=== PATIENT | male | born 1955 | race Caucasian/White ===

== ENCOUNTER 2020-12-22 07:52 | Inpatient (IN) ==
[2020-12-22] MEDS ORDERED: ONDANSETRON 4 MG/2 ML VIAL IV PRN (10:19)
[2020-12-22] MEDS ORDERED: PROMETHAZINE 25 MG/ML VIAL IV PRN (10:56)
--- NOTE | 2020-12-22 11:27 | General Surg History&Physical ---
HPI History of Present Illness Patient information: Note initiated : 12/22/20 at 11:07 am Service Date, if different from initiated Date: [] Patient: Osmar Gunn 65 y/o M admitted on 12/22/20 for RUQ pain. Chief Complaint: [] Chief complaint: Right upper quadrant abdominal pain History of present illness: Mr. Gunn is a 65 year old M transferred from [facility] for evaluation of suspected gallbladder disease. The patient had onset of severe right upper quadrant pain radiating through to his back about 2 PM yesterday. The pain increased throughout the day and by 9 PM last evening was very severe. He was seen in the hospital in [facility]. He was afebrile with a normal white count but had tender abdomen especially in the right upper quadrant and epigastrium. The gallbladder wall on CT was thickened. Ducts were normal. No stones were seen. He remains symptomatic and is transferred here for evaluation and treatment. Constitutional Constitutional: Present anorexia and weight loss (Intentional weight loss over the past year); Absent night sweats Cardiovascular Cardiovascular: Absent chest pain with activity, claudication and dyspnea on exertion Respiratory Respiratory: Absent cough, dyspnea on exertion and wheezing Gastrointestinal Gastrointestinal: Present abdominal pain, cramping, dyspepsia, nausea and vomiting Genitourinary Genitourinary: change in urinary stream, difficulty urinating, nocturia, urinary frequency, urinary hesitancy and urinary incontinence Musculoskeletal Musculoskeletal: Present back pain; Absent abnormal gait, arthralgias and neck pain Integumentary Integumentary: Absent changing lesions, pruritus and skin ulcer Neurological Neurological: Absent abnormal gait, convulsions, focal weakness, headache(s) and vertigo Psychiatric Psychiatric: Absent behavioral changes and depression Endocrine Endocrine: Absent change in body appearance, excessive sweating and palpitations Hematologic/Lymphatic Hematologic/Lymphatic: Absent easy bleeding, easy bruising and lymphadenopathy Allergic/Immunologic Allergic/Immunologic: Absent tongue swelling and throat swelling PFSH PFSH All Active Problems (Updated 12/22/20 @ 11:26 by Arnulfo Fabian MD) History of coronary artery disease (Acute) Adynamic ileus (Acute) Acute cholecystitis (Acute) Low back pain (Acute) Medical History (Updated 12/22/20 @ 11:26 by Arnulfo Fabian MD) Coronary artery disease Degenerative joint disease Degenerative lumbar disc History of prostate cancer Low back pain Surgical History (Updated 12/22/20 @ 11:19 by Arnulfo Fabian MD) H/O inguinal hernia repair H/O radical prostatectomy H/O umbilical hernia repair History of arthroplasty of right shoulder Family History (Updated 12/22/20 @ 11:22 by Arnulfo Fabian MD) Father Diabetes mellitus Lung cancer Coronary artery disease Mother Dementia Hypertension Social History (Updated 12/22/20 @ 11:23 by Arnulfo Fabian MD) household members: family marital status: occupational status: retired occupation: Educator hx recent travel: No smoking status: Never smoker alcohol intake frequency: 0-2 drinks per day substance use type: does not use MEDS/ALLERGIES Home Medications and Allergies Home Medications Medication Instructions Recorded Confirmed Type aspirin 81 mg PO DAILY 12/22/20 12/22/20 History atorvastatin 40 mg PO QHS 12/22/20 12/22/20 History losartan 50 mg PO QDAY 12/22/20 12/22/20 History metoprolol succinate 25 mg PO BID 12/22/20 12/22/20 History Allergies Allergy/AdvReac Type Severity Reaction Status Date / Time Penicillins Allergy Mild Rash Verified 12/22/20 09:55 Physical Examination Vital Signs Vital signs: Temp Pulse BP Pulse Ox 100.0 F H 78 119/70 97 12/22/20 07:54 12/22/20 07:54 12/22/20 07:54 12/22/20 07:54 General physical appearance General physical exam: well developed, well nourished and no distress Eyes Eye exam: PERRL and normal ocular movement ENT ENT exam: normal nares, normal mucosa, no hearing loss and no congestion Head Head exam IM: Present atraumatic, normal inspection and normocephalic Neck Neck exam: no masses, no bruits, trachea midline, no lymphadenopathy and no venous distension Cardiovascular Cardiovascular exam IM: Present normal rate and rhythm, RRR, +S1 and +S2; Absent gallop and JVD Respiratory Respiratory exam: normal expansion, normal respiratory effort, clear to auscultation and other Abdomen Abdomen: Present soft, tender (Right upper quadrant and epigastrium) and bowel sounds Hernia: Present none Genitourinary Genitourinary (Male): Present normal penis with no external lesions Rectum Rectum: Present normal sphincter tone, no hemorrhoids, no tenderness, no masses and no bleeding Integumentary Integumentary: Present no rash, no growths and no abnormal pigmentation Neurologic Neurologic: Present normal coordination and normal sensation Musculoskeletal Musculoskeletal: Present normal gait and normal posture Psychiatric Psychiatric: Present oriented to time, oriented to person, oriented to place, speech is normal and memory intact Results Labs Labs: All other labs normal. A/P Assessment and plan (1) Acute cholecystitis: Status: Acute (2) Adynamic ileus: Status: Acute (3) History of coronary artery disease: Status: Acute Narrative A/P Narrative: Patient will have upper abdominal ultrasound to confirm gallstones Single view abdominal x-ray will be done to evaluate for possible small bowel obstruction versus ileus N.p.o. until after ultrasound is complete Schedule for cholecystectomy in the morning Time Spent With Patient Time: Total time spent is greater than 50% in coordination of care (as documented) at patient's floor/unit and/or counseling patient:
--- NOTE | 2020-12-22 12:03 | Ultrasound Report ---
History: Right upper quadrant pain The pancreas is obscured by bowel gas. The liver is normal in size. There are a few peripheral cysts. The largest is located posteriorly in the right lobe and measures 2 x 2.1 cm. Liver parenchyma is somewhat heterogeneous. There are multiple small nonshadowing echogenic structures in both lobes, located near the portal triads. No solid mass is seen. Doppler shows normal blood flow in the hepatic and portal veins.. Gallbladder wall is thickened and measures 5 mm. Patient was nontender while scanning over the gallbladder. There is a moderate amount of sludge within the lumen. There are two oval-shaped noncalcified structures along the posterior wall. One measures 4 x 5 mm and the other is 5 x 5 mm. They not move when the patient was rolled. The common bile duct is incompletely visualized due to overlying bowel gas. The visualized segment is 6 mm in diameter. This is upper limits of normal. No ascites is present.. IMPRESSION: Thickened gallbladder wall with sludge and small polyps or noncalcified stones. Patient may have chronic cholecystitis. Multiple small echogenic foci scattered throughout the liver. This is a nonspecific finding but sometimes associated with hepatitis. Interpreted and Authenticated by: Kamar Villalobos 12/22/20
--- NOTE | 2020-12-22 12:40 | XRay Report ---
HISTORY: Right upper quadrant pain, dilated small bowel seen on CT scan done earlier in the same date at [facility] FINDINGS: Spine and erect images were acquired. There is a dilated segment of small bowel in the mid epigastrium measuring 5.9 cm in diameter. This contains air-fluid levels. The stomach is nondistended. The distal jejunum and ileum are decompressed. Patient has an elongated large bowel contains a large amount of fecal material. No free intra-abdominal air is present. No mass or abnormal soft tissue calcification are seen. IMPRESSION: Dilated proximal small bowel with air-fluid levels. This may be a proximal small bowel obstruction. Interpreted and Authenticated by: Kamar Villalobos 12/22/20
--- NOTE | 2020-12-22 12:41 | XRay Report ---
HISTORY: Right upper quadrant pain, preop FINDINGS: The lungs are clear and well expanded. The heart size is normal. There has been prior coronary bypass surgery. No congestive heart failure or pleural effusion are present. The mediastinum and hilar normal. Patient has a left shoulder prosthesis. Comparison with the prior exam done on 11/15/19 shows resolution of the previously seen cardiomegaly, bilateral pleural effusions and consolidation in both lower lobes. IMPRESSION: Normal exam Interpreted and Authenticated by: Kamar Villalobos 12/22/20
[2020-12-22 13:18] LABS: INR 1.1 (0.9-1.1); Prothrombin Time 14.5 sec (11.9-14.5)
[2020-12-22] MEDS: 0.9 % SODIUM CHLORIDE 10 ML SYRINGE IV SCH ×2 (13:50→20:31)
[2020-12-22] MEDS: POLYETHYLENE GLYCOL 3350 17 GM PACKET PO SCH ×3 (13:51→21:02)
[2020-12-22] MEDS: LEVOFLOXACIN 750 MG/150 ML BAG IV SCH (13:55)
[2020-12-22] MEDS: 0.9 % SODIUM CHLORIDE 1,000 ML IV SCH ×2 (13:55→22:02)
[2020-12-22] MEDS: ACETAMINOPHEN 1,000 MG/100 ML BAG IV PRN ×2 (16:45→22:42)
[2020-12-22] MEDS ORDERED: SENNOSIDES 1 TABLET PO SCH (21:00)
[2020-12-22] MEDS: DOCUSATE SODIUM 100 MG CAPSULE PO SCH (21:01)
[2020-12-22] MEDS: METOPROLOL SUCCINATE 25 MG TAB.XL.24H PO SCH (21:04)
[2020-12-22] MEDS ORDERED: HYDROmorphone 1 MG/ML SYRINGE ONE (23:41)
[2020-12-23] MEDS ORDERED: HYDROmorphone 1 MG/ML SYRINGE IV PRN ×2 (00:01→10:02)
[2020-12-23] MEDS: 0.9 % SODIUM CHLORIDE 1,000 ML IV SCH ×5 (01:21→21:08)
[2020-12-23] MEDS ORDERED: HYDROmorphone 1 MG/ML SYRINGE ONE (02:28)
[2020-12-23] MEDS: 0.9 % SODIUM CHLORIDE 10 ML SYRINGE IV SCH ×3 (05:08→21:20)
[2020-12-23] MEDS ORDERED: IPRATROPIUM/ALBUTEROL 3 ML AMPUL.NEB NEB PRN ×2 (06:50→08:33)
[2020-12-23] MEDS ORDERED: SCOPOLAMINE 1 PATCH PATCH TOPICAL PRN ×2 (06:50→10:02)
[2020-12-23 07:03] LABS: Basophils # (Auto) 0.01 K/mcL (0.00-0.30); Basophils % (Auto) 0.1 % (0.0-2.0); Eosinophils # (Auto) 0.01 K/mcL (0.00-0.70); Eosinophils % (Auto) 0.1 % (0.0-7.0); Hematocrit 44.7 % (40.1-51.0); Hemoglobin 14.6 g/dL (13.7-17.5); Lymphocytes # (Auto) 0.51 K/mcL (1.50-4.80); Lymphocytes % (Auto) 5.7 % (15.5-49.0); Mean Cell Volume 90.3 fL (80.0-100.0); Mean Corpuscular HGB Conc 32.7 g/dL (31.0-36.0); Mean Platelet Volume 8.8 fL (7.4-10.4); Monocytes % (Auto) 8.9 % (1.0-12.0); Neutrophils % (Auto) 85.2 % (38.0-78.0); Platelet Count 150 K/mcL (140-440); RBC 4.95 M/mcL (4.63-6.08); Red Cell Distribution Width 13.4 % (11.5-14.5)
[2020-12-23] MEDS ORDERED: ONDANSETRON 4 MG/2 ML VIAL ONE (07:46)
[2020-12-23] MEDS ORDERED: LIDOCAINE HCL/PF 100 MG/5 ML SYRINGE IV ONE (07:46)
[2020-12-23] MEDS ORDERED: PROPOFOL 200 MG/20 ML VIAL IV ONE (07:46)
[2020-12-23] MEDS ORDERED: GLYCOPYRROLATE 0.2 MG/ML VIAL IV ONE (07:46)
[2020-12-23] MEDS ORDERED: MAGNESIUM SULFATE 2 GM/50 ML BAG IV ONE (07:46)
[2020-12-23] MEDS ORDERED: SUGAMMADEX SODIUM 200 MG/2 ML VIAL IV ONE (07:46)
[2020-12-23] MEDS ORDERED: MIDAZOLAM 2 MG/2 ML VIAL ONE (07:46)
[2020-12-23] MEDS ORDERED: DEXAMETHASONE 10 MG/ML VIAL ONE (07:46)
[2020-12-23] MEDS ORDERED: PHENYLephrine 1 MG/10 ML SYRINGE (ANEST) ONE (07:46)
[2020-12-23] MEDS ORDERED: fentaNYL 100 MCG/2 ML VIAL IV ONE (07:46)
[2020-12-23] MEDS ORDERED: KETAMINE 50 MG/ML Syringe (ANEST) IV ONE (07:46)
[2020-12-23] MEDS ORDERED: ROCURONIUM 10 MG/ML ML IV ONE (07:46)
[2020-12-23 07:54] LABS: ALT/SGPT 73 U/L (<40); AST/SGOT 78 U/L (<40); Albumin 3.5 gm/dL (3.2-5.2); Albumin/Globulin Ratio 1.3 (1.0-2.3); Alkaline Phosphatase 86 U/L (39-117); Bilirubin,Total 1.2 mg/dL (0.1-1.0); Blood Urea Nitrogen 11 mg/dL (8-23); Calcium 8.7 mg/dL (8.6-10.4); Carbon Dioxide 25 mmol/L (22-30); Chloride 105 mmol/L (96-108); Globulin 2.7 gm/dL (2.2-3.7); Glomerular Filtration Rate 78; Glucose 113 mg/dL (70-105)
[2020-12-23] MEDS ORDERED: MEPERIDINE 25 MG/ML VIAL IV PRN (08:33)
[2020-12-23] MEDS ORDERED: ONDANSETRON 4 MG/2 ML VIAL IV PRN ×2 (08:33→10:02)
[2020-12-23] MEDS ORDERED: METHOCARBAMOL 1,000 MG/10 ML VIAL IV PRN (08:33)
[2020-12-23] MEDS ORDERED: BENZOCAINE/MENTHOL 1 LOZENGE PO PRN (08:33)
[2020-12-23] MEDS ORDERED: KETOROLAC 15 MG/ML VIAL IV PRN (08:33)
[2020-12-23] MEDS ORDERED: PROMETHAZINE 25 MG/ML VIAL IV PRN ×2 (08:33→10:02)
[2020-12-23] MEDS ORDERED: fentaNYL 100 MCG/2 ML VIAL IV PRN (08:33)
[2020-12-23] MEDS ORDERED: LACTATED RINGERS 1,000 ML IV SCH (08:45)
[2020-12-23] MEDS ORDERED: LOSARTAN 50 MG TABLET PO SCH (09:00)
--- NOTE | 2020-12-23 09:26 | Brief Operative Note ---
Brief Operative Note Date of procedure: 12/23/20 Pre-op diagnosis: acute cholecystitis with cholelithiasis Post-op diagnosis: other (acute cholecystitis with cholelithiasis) Procedure: laparoscopic cholecystectomy Grafts/Implants: No (isaac drain x1) Anesthesia: GETA Findings: acute severe inflammation of gallbladder Complications: none Surgeon: Arnulfo Fabian Specimens Removed/Pathology: other (gallbladder) Condition: stable Disposition: PACU
[2020-12-23] MEDS ORDERED: oxyCODONE HCL 5 MG TABLET PO PRN (10:02)
[2020-12-23] MEDS: DOCUSATE SODIUM 100 MG CAPSULE PO SCH ×2 (10:34→20:29)
[2020-12-23] MEDS: LEVOFLOXACIN 750 MG/150 ML BAG IV SCH ×2 (10:35→10:40)
[2020-12-23] MEDS: METOPROLOL SUCCINATE 25 MG TAB.XL.24H PO SCH ×2 (10:35→20:29)
[2020-12-23] MEDS: ACETAMINOPHEN 1,000 MG/100 ML BAG IV PRN ×2 (15:32→21:47)
[2020-12-23] MEDS ORDERED: SENNOSIDES 1 TABLET PO SCH (21:00)
[2020-12-24] MEDS: 0.9 % SODIUM CHLORIDE 10 ML SYRINGE IV SCH (04:30)
[2020-12-24] MEDS: 0.9 % SODIUM CHLORIDE 1,000 ML IV SCH (05:56)
[2020-12-24 07:54] LABS: Basophils # (Auto) 0 K/mcL (0.00-0.30); Basophils % (Auto) 0 % (0.0-2.0); Eosinophils # (Auto) 0 K/mcL (0.00-0.70); Eosinophils % (Auto) 0 % (0.0-7.0); Hematocrit 38.7 % (40.1-51.0); Hemoglobin 12.7 g/dL (13.7-17.5); Lymphocytes % (Auto) 7.3 % (15.5-49.0); Mean Cell Volume 90.4 fL (80.0-100.0); Mean Corpuscular HGB Conc 32.8 g/dL (31.0-36.0); Mean Platelet Volume 9.1 fL (7.4-10.4); Monocytes % (Auto) 7.3 % (1.0-12.0); Neutrophils % (Auto) 85.4 % (38.0-78.0); Platelet Count 144 K/mcL (140-440); RBC 4.28 M/mcL (4.63-6.08); Red Cell Distribution Width 13.6 % (11.5-14.5); WBC 6.8 K/mcL (4.5-11.0)
[2020-12-24 08:20] LABS: ALT/SGPT 70 U/L (<40); AST/SGOT 47 U/L (<40); Albumin 3.3 gm/dL (3.2-5.2); Albumin/Globulin Ratio 1.2 (1.0-2.3); Alkaline Phosphatase 72 U/L (39-117); Bilirubin,Direct 0.3 mg/dL (<0.3); Bilirubin,Total 0.7 mg/dL (0.1-1.0); Blood Urea Nitrogen 12 mg/dL (8-23); Calcium 8.3 mg/dL (8.6-10.4); Carbon Dioxide 25 mmol/L (22-30); Chloride 103 mmol/L (96-108); Globulin 2.7 gm/dL (2.2-3.7); Glomerular Filtration Rate 88; Glucose 108 mg/dL (70-105); Lactate Dehydrogenase 184 U/L (135-225); Phosphorous 1.6 mg/dL (2.5-4.5); Triglycerides 48 mg/dL (<150); Uric Acid 3.1 mg/dL (2.5-8.0)
[2020-12-24] MEDS: LEVOFLOXACIN 750 MG/150 ML BAG IV SCH (08:52)
[2020-12-24] MEDS: METOPROLOL SUCCINATE 25 MG TAB.XL.24H PO SCH (08:53)
[2020-12-24] MEDS: DOCUSATE SODIUM 100 MG CAPSULE PO SCH (08:53)
[2020-12-24] MEDS ORDERED: LOSARTAN 50 MG TABLET PO SCH (09:00)
--- NOTE | 2020-12-24 13:02 | Discharge Summary ---
Discharge Provider Provider Patient information: Note initiated : 12/24/20 at 1:00 pm Service Date, if different from initiated Date: [] Patient: Osmar Gunn 65 y/o M admitted on 12/22/20 for RUQ pain. Chief Complaint: [] Date of admission: 12/22/20 07:54 Discharge date: 12/24/20 Primary care physician: Edgar Mills, ELISE, CHILD NURSE COURSE Hospital Course Hospital course: 65-year-old male who was admitted on 22 December with complaint of right upper quadrant pain with nausea and vomiting. He was treated at the hospital facility in [place], [place] and transferred to our facility with acute cholecystitis and possible cholelithiasis. He was not febrile so he was started on antibiotics and ultrasound was done which confirmed cholelithiasis. He underwent laparoscopic cholecystectomy on 23 December. He was found to have acute severe inflammation with small stones. His surgery proceeded uneventfully and he has done well. His LFTs are normal and his white blood count is normal. He is having minimal discomfort. Patient is stable and is discharged home in satisfactory condition Discharge diagnosis: Acute cholecystitis with cholelithiasis Secondary discharge diagnosis: History of coronary artery disease Reason for admission: Acute cholecystitis Procedures: Laparoscopic cholecystectomy 23 December 2020 Pertinent studies/significant findings: Upper abdominal ultrasound Time Spent with Patient Time attestation: Total time spent providing and/or coordinating discharge services: Physical Examination Vital Signs Vital signs: Temp Pulse Resp BP Pulse Ox 98.9 F 78 16 111/73 95 12/24/20 12:00 12/24/20 12:00 12/24/20 12:00 12/24/20 12:00 12/24/20 12:00 General physical appearance General physical exam: well developed, well nourished and no distress Eyes Eye exam: PERRL and normal ocular movement ENT ENT exam: normal nares, normal mucosa, no hearing loss and no congestion Head Head exam IM: Present atraumatic, normal inspection and normocephalic Neck Neck exam: no masses, no bruits, trachea midline, no lymphadenopathy and no venous distension Cardiovascular Cardiovascular exam IM: Present normal rate and rhythm, RRR, +S1 and +S2; Absent gallop and JVD Respiratory Respiratory exam: normal expansion, normal respiratory effort, clear to auscultation and other Abdomen Abdomen: Present soft, tender (Operative incisions look good) and bowel sounds Hernia: Present none Integumentary Integumentary: Present no rash, no growths and no abnormal pigmentation Neurologic Neurologic: Present normal coordination and normal sensation Musculoskeletal Musculoskeletal: Present normal gait and normal posture Psychiatric Psychiatric: Present oriented to time, oriented to person, oriented to place, speech is normal and memory intact Discharge Plan Patient/Caregiver Discharge Instructions Activity: increase activity as tolerated Diet: Regular Diet and Low Fat Prescriptions: Continued losartan 50 mg Tablet 50 mg PO QDAY RF: 0 metoprolol succinate 25 mg Tablet Extended Release 24 Hr 25 mg PO BID RF: 0 aspirin 81 mg Tablet 81 mg PO DAILY RF: 0 atorvastatin 40 mg Tablet 40 mg PO QHS RF: 0 Follow Up Plan Follow up with: Arnulfo Fabian MD [Physician] - (Contact office on Saturday and set up appointment for 2 weeks) Patient Disposition: Home, Self-Care Prognosis: Good Rehab Potential: Good I certify that the patient requires SNF services: No Overall status at discharge: patient is progressing back to baseline Discharge Orders: Discharge Order (Routine); Ordered 12/24/20 Ordered By: Arnulfo Fabian Pending Pending Pending: Resuscitation Status Resuscitate (Full Code) Diet Regular Diet Start Sat Sep 4 0800 Docusate Sodium (Docusate Sodium 100 Mg Capsule) 100 mg PO BID [facility] Last Admin: 12/24/20 08:53 Dose: 100 mg Documented by: Admin: 12/23/20 20:29 Dose: 100 mg Documented by: KSENIA Sodium Chloride (Sodium Chloride 0.9%) 1,000 mls @ 100 mls/hr IV .Q10H [facility] Last Admin: 12/24/20 05:56 Dose: Not Given Documented by: Infusion: 12/24/20 02:43 Dose: 0 mls/hr Documented by: Admin: 12/23/20 21:08 Dose: Not Given Documented by: Admin: 12/23/20 16:20 Dose: 100 mls/hr Documented by: Infusion: 12/23/20 16:02 Dose: 100 mls/hr Documented by: Admin: 12/23/20 10:17 Dose: 100 mls/hr Documented by: BRITTANY Acetaminophen (Ofirmev) 1,000 mg in 100 mls @ 200 mls/hr IV Q6HP PRN; Protocol PRN Reason: Per Pain Protocol/Fever > 101 Last Infusion: 12/23/20 22:21 Dose: 0 mls/hr Documented by: Admin: 12/23/20 21:47 Dose: 200 mls/hr Documented by: Infusion: 12/23/20 16:05 Dose: 0 mls/hr Documented by: Admin: 12/23/20 15:32 Dose: 200 mls/hr Documented by: BRITTANY Levofloxacin (Levaquin) 750 mg in 150 mls @ 100 mls/hr IV DAILY SILVIA; Protocol Last Infusion: 12/24/20 11:38 Dose: 0 mls/hr Documented by: Admin: 12/24/20 08:52 Dose: 100 mls/hr Documented by: Infusion: 12/23/20 12:10 Dose: 0 mls/hr Documented by: Admin: 12/23/20 10:40 Dose: 100 mls/hr Documented by: BRITTANY Losartan Potassium (Losartan 50 Mg Tablet) 50 mg PO QDAY [facility] Last Admin: 12/24/20 08:53 Dose: 50 mg Documented by: ALEX Metoprolol Succinate (Metoprolol Succinate 25 Mg Tab.Xl.24h) 25 mg PO BID [facility] Last Admin: 12/24/20 08:53 Dose: 25 mg Documented by: Admin: 12/23/20 20:29 Dose: 25 mg Documented by: KSENIA Senna (Sennosides 1 Tablet) 2 tab PO HS [facility] Last Admin: 12/23/20 20:28 Dose: 2 tab Documented by: KSENIA Sodium Chloride (0.9 % Sodium Chloride 10 Ml Syringe) 10 ml IV Q8 [facility] Last Admin: 12/24/20 04:30 Dose: Not Given Documented by: Admin: 12/23/20 21:20 Dose: Not Given Documented by: Admin: 12/23/20 13:29 Dose: Not Given Documented by: BRITTANY Shift Summary 12/24/20 04:23 Shift Summary by Melva Lin Primary Diagnosis: Acute cholecystitis Registration Status: In-patient Day of Hospitalization: 3 Date of Surgery (if applicable): Lap bernardino 12/23/2020 Pertinent Medical Dx/Issues (may be more than one): History of coronary artery disease/CABG procedure, diverticulitis, and hypertension. Interventions (O2, wounds, diuresis, etc): Full liquid diet ordered, abx, prn pain meds Vital Signs with Trends: VSS on RA Meds (abo, pain, BP, etc): IV Levaquin , Dilaudid/oxycodone/Ofirmev for pain prn, anti-emetics for nausea Lines/Tubes: NS infusing @100mL/hr Oxygen needs (home use vs. current use): On RA Date of last BM: 12/21/2020 Expected date of discharge: 12/24/2020 Discharge Plan (needs, disposition, etc): Will d/c home with Shift Summary: Pt is A/O gets up to BR with SBA. Tolerating full liquid diet, will advance to general diet this morning. No c/o of nausea. 4 abd lap sites 3 with muriel and 1 BRINA drain, tagaderm and gauze dressings, changed today. C/o of incisional pain 5/10 with movement, pain controlled with IV acetaminophen, prn oxy and dilaudid available. Resting between cares. Initialized on 12/24/20 04:23 - END OF NOTE
--- NOTE | 2020-12-27 13:59 | EKG ---
[facility] Test Date: 2020-12-22 Pat Name: Osmar Gunn Department: [facility] Room: 126 Gender: Male Workers Compensation Examiner: : 1955 Requested By: Arnulfo Fabian Order Number: [id number] Reading MD: Wale Villalobos M.D. Measurements Intervals [place] Rate: 108 P: 56 VT: 168 QRS: 10 QRSD: 82 T: 78 QT: 360 QTc: 483 Interpretive Statements SINUS RHYTHM with ventricular bigeminy PROBABLE LEFT ATRIAL ABNORMALITY Poor R wave progression. Electronically Signed On 12-27-2020 13:59:42 PDT by Wale Villalobos M.D. /store/M0/[id number]
--- NOTE | 2020-12-27 18:41 | Surgical Pathology Report ---
Histology Microscopic Diagnosis Specimen A- GALLBLADDER, CHOLECYSTECTOMY: --- GANGRENOUS ACUTE CHOLECYSTITIS. (ACP) Procedural Impression Acute cholecystitis/cholelithiasis. Gross Description Received in formalin labeled designated gallbladder, is a previously opened gallbladder. It is purple-garcia and is 11.7 x 4.6 x 1.2 cm. There is a metal clip on the duct. The specimen contains viscous sludge and clot-like material. The mucosa is purple-garcia with green-garcia splotchy areas. The wall is up to 0.3 cm thick. Grossly there are no stones identified. Power System Electrical Engineer sections submitted in one cassette. (SCB:adj) Electronically Signed Ryder Villalobos MD, FCAP Electronically Signed 12/27/2020 18:40
--- NOTE | 2020-12-30 14:10 | Operative Note ---
DATE OF OPERATION: 12/23/2020 PREOPERATIVE DIAGNOSIS: Acute cholecystitis with cholelithiasis. POSTOPERATIVE DIAGNOSIS: Acute cholecystitis with cholelithiasis. PROCEDURE: Laparoscopic cholecystectomy. SURGEON: Arnulfo Fabian M.D. FINDINGS: Acute severe inflammation of the gallbladder with pregangrenous changes. DESCRIPTION OF PROCEDURE: Under general anesthesia, the patient's abdomen was prepped and draped in a sterile field. A supraumbilical incision was made and Veress needle was inserted. The abdomen was insufflated with 3 liters of CO2. A 12 mm port was placed. Laparoscope was placed. A severely inflamed gallbladder was noted. Under videoscopic guidance, a 12 mm port and two 5 mm ports were placed in the right subcostal region. The gallbladder was very tense and extremely reddened with some dark areas suggesting gangrenous necrosis. The gallbladder was decompressed with a Weck needle. The gallbladder was then grasped and positioned. Cystic duct was dissected and followed back to the gallbladder. Cystic artery branch was dissected and followed onto the wall of the gallbladder. Cystic duct was clipped with 5 clips and divided. Cystic artery was clipped with 4 clips and divided. The gallbladder was then from the infrahepatic bed using electrocautery. Gallbladder was placed in an Endopouch and retrieved. Bleeding from the bed was controlled with electrocautery. BRINA drain was placed in the subhepatic space and brought out through the most lateral port sites. The other port were removed. The fascia at the umbilicus was closed with interrupted 0 Vicryl. Skin incisions were closed with muriel. The patient tolerated the procedure well. Tegaderm dressings were placed. He was awakened, transferred to a bed, and taken to the postanesthetic care unit in stable, satisfactory condition. LCS:dorie Job ID: [id number] Doc ID: [id number] Arnulfo Fabian M.D.
== END 2020-12-24 13:45 | disposition home or self-care (01) | DRG 418 ==
LOC: MEDSUR 07:54
PROVIDERS: ADMIT Family Medicine Adult Medicine; ATTEND Family Medicine Adult Medicine